=== PATIENT | male | born 2000 | race African-American/Black ===

== ENCOUNTER 2021-05-30 16:39 | Emergency (ER) | payer OTHER ==
[~2021-05-30] VITALS: Ht 188 cm; Wt 90.7 kg
[2021-05-30 16:39] VITALS: BP 120/69
[2021-05-30] MEDS ORDERED: AMOXICILLIN500 M1 PO ×2 (17:45→18:02)
== END 2021-05-30 17:48 | disposition home or self-care (01) ==
LOC: ER 16:39
DX: K04.7 Periapical abscess without sinus (principal)

== ENCOUNTER 2021-07-02 19:28 | Emergency (ER) | payer OTHER ==
[~2021-07-02] VITALS: Ht 188 cm; Wt 88.5 kg
[~2021-07-02 19:28] MED LIST: AMOXICILLIN500 M1 PO
[2021-07-02 21:17] LABS: HEMATOCRIT 41.4 % (42.0-52.0); HEMOGLOBIN 13.9 gm/dL (14.0-18.0); MCH 27.6 pg (26.0-34.0); MCHC 33.6 g/dL (28.0-37.0); MCV 82.1 fL (80.0-100.0); RBC 5.04 mil/uL (4.50-6.00); RDW 13.7 % (10.5-14.5); WBC 3.9 thou/uL (4.0-11.0)
[2021-07-02 21:27] LABS: CALCIUM 8.8 mg/dL (8.5-10.1); CREATININE 0.9 mg/dL (0.7-1.3); POTASSIUM 3.4 mmol/L (3.5-5.1)
[2021-07-02 21:37] LABS: ALBUMIN 4.1 g/dL (3.4-5.0); TOTAL BILIRUBIN 1.7 mg/dL (0.2-1.0); TOTAL PROTEIN 8.1 g/dL (6.4-8.2)
[2021-07-02 22:13] VITALS: BP 120/68
--- NOTE | 2021-07-03 07:41 | EKG ---
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
== END 2021-07-02 22:14 | disposition home or self-care (01) ==
LOC: ER 19:28
PROVIDERS: Nurse Practitioner Family
DX: R55 Syncope and collapse (principal); Z20.822 Contact with and (suspected) exposure to COVID-19; J02.9 Acute pharyngitis, unspecified; Z79.899 Other long term (current) drug therapy

== ENCOUNTER 2021-08-17 16:14 | Emergency (ER) | payer OTHER ==
[~2021-08-17] VITALS: Ht 188 cm; Wt 88.5 kg
[2021-08-17 16:18] VITALS: BP 130/76
[2021-08-17] MEDS ORDERED: TRAZODONE HCL50 MG PO (16:21)
== END 2021-08-17 17:23 | disposition home or self-care (01) ==
LOC: ER 16:14
DX: J06.9 Acute upper respiratory infection, unspecified (principal); Z20.822 Contact with and (suspected) exposure to COVID-19; Z79.899 Other long term (current) drug therapy